=== PATIENT | male | born 1975 | race Two or more races ===

== ENCOUNTER 2019-04-11 09:31 | Inpatient (IN) | payer BC, OTHER ==
[~2019-04-11] VITALS: Ht 165.1 cm; Wt 78.0 kg
[~2019-04-11 09:31] MED LIST: RANITIDINE HCL150 MG ORAL
[2019-04-11] MEDS ORDERED: COLACE100 MG ORAL (09:46)
[2019-04-11] MEDS ORDERED: OMEPRAZOLE40 M1 ORAL (09:46)
--- NOTE | 2019-04-11 09:48 | NUR ---
ED Nurse Note: Pt walked in from home c/o abdominal pain. Pt is a&ox4. States he has had n&v since yesterday. Med rec done.
[2019-04-11 09:52] VITALS: BP 122/80
[2019-04-11] MEDS ORDERED: Ondansetron ODT 8mg tab ORAL ONE (10:00)
--- NOTE | 2019-04-11 10:01 | NUR ---
ED Nurse Note: ERMD at bedside.
[2019-04-11 10:19] LABS: APPEARANCE,URINE CLEAR; BILIRUBIN, URINE NEGATIVE (NEGATIVE); COLOR,URINE BROWN; GLUCOSE, URINE (UA) NEGATIVE (NEGATIVE); KETONES,URINE 1+ (NEGATIVE); LEUKOCYTE ESTERASE ,URINE 1+ (NEGATIVE); NITRITE,URINE NEGATIVE (NEGATIVE); PH,URINE 8 (4.5-8.0); PROTEIN,URINE 2+ (NEGATIVE); UROBILINOGEN,URINE NORMAL MG/DL (0.0-1.0)
--- NOTE | 2019-04-11 10:19 | NUR ---
ED Nurse Note: [facility] sap data analyst used to obtained director clinical information services name: Syd Chain Repairer ID # [id number]
--- NOTE | 2019-04-11 10:21 | NUR ---
Blood labs were sent to lab.
--- NOTE | 2019-04-11 10:22 | NUR ---
ED Nurse Note: ERMD at bedside with emergency medical technician/driver on phone.
[2019-04-11 10:35] LABS: BASOPHILS % (AUTO) 0.6 % (0.0-2.0); EOSINOPHILS % (AUTO) 0.1 % (0.0-3.0); HEMATOCRIT 49.4 % (42.0-52.0); HEMOGLOBIN 17.3 G/DL (14.2-18.0); MEAN CORPUSCULAR VOLUME 85 FL (80-99); MONOCYTES % (AUTO) 7.3 % (1.0-10.0); PLATELET COUNT 257 K/UL (150-450); RED CELL DISTRIBUTION WIDTH 10.7 % (11.6-14.8); WHITE BLOOD COUNT 12.8 K/UL (4.8-10.8)
[2019-04-11] MEDS ORDERED: Omnipaque-300 100ml vial INJ PRN (10:45)
[2019-04-11] MEDS ORDERED: Lidocaine 2% Visc 15ml soln ORAL ONE (10:45)
[2019-04-11 11:28] LABS: ANION GAP 4 mmol/L (5-15); BLOOD UREA NITROGEN 20 mg/dL (7-18); CALCIUM 9.9 MG/DL (8.5-10.1); CARBON DIOXIDE 35 MMOL/L (21-32); CHLORIDE 95 MMOL/L (98-107); CREATININE 1.1 MG/DL (0.55-1.30); POTASSIUM 3.3 MMOL/L (3.5-5.1); SODIUM 133 MMOL/L (136-145)
[2019-04-11 11:33] LABS: ALANINE AMINOTRANSFERASE 42 U/L (12-78); ALBUMIN 4.9 G/DL (3.4-5.0); ALBUMIN/GLOBULIN RATIO 1.2 (1.0-2.7); ALKALINE PHOSPHATASE 81 U/L (46-116); ASPARTATE AMINO TRANSFERASE 26 U/L (15-37); BILIRUBIN,TOTAL 0.6 MG/DL (0.2-1.0)
--- NOTE | 2019-04-11 11:40 | NUR ---
ED Nurse Note: pt taken to CT in stable condition.
--- NOTE | 2019-04-11 11:54 | NUR ---
Pt returned from CT.
--- NOTE | 2019-04-11 12:30 | Emergency Room Report ---
History of Present Illness General Chief Complaint: Abdominal Pain Source: Patient Present Illness HPI This patient states that he has a history of acid reflux and constipation. He is in treatment with his primary care physician for the constipation. He is on a fiber supplement and stool softener. He states that he has been having normal bowel movements. He states that yesterday he developed some abdominal pain and that overnight his pain began to worsen and was diffusely all over his abdomen. He also had multiple episodes of nausea and vomiting. He states that he also had a sensation of acid reflux. He denies dysuria or hematuria. He denies fever chills. He denies chest pain or shortness of breath. He has no other complaints. Allergies: Coded Allergies: No Known Allergies (Unverified , 08/27/15) Patient History Past Medical History: see triage record, GERD, other - Constipation Past Surgical History: other - colonoscopy within the last year. Social History: Denies: smoking, alcohol use, drug use Reviewed Nursing Documentation: PMH: Agreed; PSxH: Agreed Nursing Documentation-PMH Past Medical History: No History, Except For Hx Cardiac Problems: No - GERD Review of Systems All Other Systems: negative except mentioned in HPI Physical Exam Vital Signs Date Time Temp Pulse Resp B/P (MAP) Pulse Ox O2 Delivery O2 Flow Rate FiO2 04/11/19 09:38 98.2 85 17 127/84 (98) 95 Room Air 04/11/19 09:52 97 Sp02 EP Interpretation: reviewed, normal General Appearance: no apparent distress, alert, GCS 15, non-toxic Head: normocephalic, atraumatic Eyes: bilateral eye normal inspection, bilateral eye PERRL ENT: hearing grossly normal, normal pharynx, no angioedema, normal voice Neck: full range of motion, supple/symm/no masses Respiratory: chest non-tender, lungs clear, normal breath sounds, no respiratory distress, no retraction, no accessory muscle use, speaking full sentences Cardiovascular #1: regular rate, rhythm, no edema Gastrointestinal: normal bowel sounds, soft, non-distended, no guarding, no rebound, tenderness - TTP diffusely Rectal: deferred Musculoskeletal: back normal, gait/station normal, normal range of motion, non- tender Neurologic: alert, oriented x3, responsive, motor strength/tone normal, sensory intact, speech normal Psychiatric: judgement/insight normal, memory normal, mood/affect normal, no suicidal/homicidal ideation Skin: no rash, normal color Medical Decision Making Diagnostic Impression: Primary Impression: Partial small bowel obstruction ER Course This patient has findings on CT of the abdomen and pelvis that is concerning for a possible stricture in the distal small bowel. There are areas of dilated bowel. In the differential is an enteritis with a strong contraction that had been captured on the CT. However, the patient continues to have significant pain and tenderness on exam. The treatments that I gave for gastritis were only minimally effective in relieving the patient's symptoms and pain. I consulted general surgery Dr. Toledo and he agreed that this patient needed further evaluation. He needed to be admitted to assess for possible small bowel stricture. He is pending a small bowel follow-through and further evaluation and treatment per general surgery and internal medicine and their expertise. He is admitted for further evaluation and treatment and intractable pain. I am concerned that if this patient were to be discharged home he could progress and become fully obstructed with a significant possibility of morbidity or mortality. Laboratory Tests Test 04/11/19 10:00 04/11/19 10:18 Urine Color Brown Urine Appearance Clear Urine pH 8 (4.5-8.0) Urine Specific [place] 1.010 (1.005-1.035) Urine Protein 2+ (NEGATIVE) H Urine Glucose (UA) Negative (NEGATIVE) Urine Ketones 1+ (NEGATIVE) H Urine Blood Negative (NEGATIVE) Urine Nitrite Negative (NEGATIVE) Urine Bilirubin Negative (NEGATIVE) Urine Urobilinogen Normal MG/DL (0.0-1.0) Urine Leukocyte Esterase 1+ (NEGATIVE) H Urine RBC 0-2 /HPF (0 - 0) H Urine WBC 0-2 /HPF (0 - 0) Urine Squamous Epithelial Cells Occasional /LPF Urine Bacteria Few /HPF (NONE) Urine Mucus Few /LPF (NONE/OCC) H Urine Opiates Screen Negative (NEGATIVE) Urine Barbiturates Screen Negative (NEGATIVE) Phencyclidine (PCP) Screen Negative (NEGATIVE) Urine Amphetamines Screen Negative (NEGATIVE) Urine Benzodiazepines Screen Negative (NEGATIVE) Urine Cocaine Screen Negative (NEGATIVE) Urine Marijuana (THC) Screen Negative (NEGATIVE) White Blood Count 12.8 K/UL (4.8-10.8) H Red Blood Count 5.80 M/UL (4.70-6.10) Hemoglobin 17.3 G/DL (14.2-18.0) Hematocrit 49.4 % (42.0-52.0) Mean Corpuscular Volume 85 FL (80-99) Mean Corpuscular Hemoglobin 29.8 PG (27.0-31.0) Mean Corpuscular Hemoglobin Concent 35.0 G/DL (32.0-36.0) Red Cell Distribution Width 10.7 % (11.6-14.8) L Platelet Count 257 K/UL (150-450) Mean Platelet Volume 6.9 FL (6.5-10.1) Neutrophils (%) (Auto) 79.0 % (45.0-75.0) H Lymphocytes (%) (Auto) 13.0 % (20.0-45.0) L Monocytes (%) (Auto) 7.3 % (1.0-10.0) Eosinophils (%) (Auto) 0.1 % (0.0-3.0) Basophils (%) (Auto) 0.6 % (0.0-2.0) Sodium Level 133 MMOL/L (136-145) L Potassium Level 3.3 MMOL/L (3.5-5.1) L Chloride Level 95 MMOL/L (98-107) L Carbon Dioxide Level 35 MMOL/L (21-32) H Anion Gap 4 mmol/L (5-15) L Blood Urea Nitrogen 20 mg/dL (7-18) H Creatinine 1.1 MG/DL (0.55-1.30) Estimate Glomerular Filtration Rate > 60 mL/min (>60) Glucose Level 138 MG/DL (74-106) H Calcium Level 9.9 MG/DL (8.5-10.1) Total Bilirubin 0.6 MG/DL (0.2-1.0) Aspartate Amino Transferase (AST) 26 U/L (15-37) Alanine Aminotransferase (ALT) 42 U/L (12-78) Alkaline Phosphatase 81 U/L (46-116) Total Protein 8.9 G/DL (6.4-8.2) H Albumin 4.9 G/DL (3.4-5.0) Globulin 4.0 g/dL Albumin/Globulin Ratio 1.2 (1.0-2.7) Lipase 239 U/L (73-393) Serum Alcohol < 3 mg/dL CT/MRI/US Diagnostic Results CT/MRI/US Diagnostic Results : Imaging Test Ordered: CT abd/pelvis Impression Impression: Suspected gastroenteritis with diffuse fluid-filled distention of small bowel. There is a questionable transition a few centimeters from the ileocecal valve. This could be a small stricture or could be on the basis of a contraction. Would favor enteritis from a imaging standpoint. Correlate clinically. Last Vital Signs Date Time Temp Pulse Resp B/P (MAP) Pulse Ox O2 Delivery O2 Flow Rate FiO2 04/11/19 09:52 98.2 82 17 122/80 97 Room Air 04/11/19 09:52 97 Status: improved Disposition: ADMITTED INPATIENT Condition: Serious Referrals: NOT CHOSEN IPA/,REFERRING (PCP) Mary Nazario DO Apr 11, 2019 12:30
[2019-04-11 13:30] VITALS: BP 121/80
--- NOTE | 2019-04-11 13:58 | Diagnostic Imaging Report ---
Indication: Abdominal pain Technique: Continuous helical transaxial imaging of the abdomen and pelvis was obtained from the lung bases to the pubic symphysis during intravenous contrast administration. Coronal 2-D reformats were also obtained. Study obtained in a Siemens sensation [address] Automatic Exposure Control was utilized. Total Dose length Product (DLP): 896.[address] Dose Index Volume (CTDIvol): 15 mGy Comparison: None Findings: There is mild to moderate dilatation of small bowel throughout the abdomen. There may be a transition at the level of the terminal ileum approximately 5 cm from the ileocecal valve (for example image 66/series 2). This is questionable and the findings could be due to a bowel obstruction at this level or possibly generalized ileus. Correlate clinically. There is a generalized the increase in fluid within small bowel and there is also liquefied stool in the colon which is suggestive of a gastroenteritis. There is no free fluid. The liver, gallbladder and spleen, adrenal glands and kidneys appear normal. Pancreas is unremarkable. No biliary ductal dilatation seen. There is a minimal basilar atelectasis. IMPRESSION: Suspected gastroenteritis with diffuse fluid-filled distention of small bowel. There is a questionable transition a few centimeters from the ileocecal valve. This could be a small stricture or could be on the basis of a contraction. Would favor enteritis from a imaging standpoint. Correlate clinically. The CT scanner at [facility] is accredited by the [employer] and the scans are performed using dose optimization techniques as appropriate to a performed exam including Automatic Exposure control.
--- NOTE | 2019-04-11 14:23 | NUR ---
ED Nurse Note: ERPA at bedside explaining pt for admitting plans.
[2019-04-11] MEDS ORDERED: Morphine Sulfate 2mg/ml Inj(IV/IM USE ONLY) IVP PRN (14:45)
[2019-04-11] MEDS ORDERED: LORazepam Inj 2mg/ml 1ml IV PRN (14:45)
[2019-04-11] MEDS ORDERED: Metoclopramide 10mg/2ml Inj IVP PRN (14:45)
[2019-04-11] MEDS ORDERED: Mylanta II UD 30ml ORAL PRN (14:45)
[2019-04-11] MEDS ORDERED: Acetaminophen 650 MG SUPP RECTAL PRN (14:45)
--- NOTE | 2019-04-11 15:10 | NUR ---
Pt went to CT.
[2019-04-11] MEDS ORDERED: Nitroglycerin Subl 0.4mg tab SL PRN (15:15)
--- NOTE | 2019-04-11 16:03 | Consultation ---
History of Present Illness General Date patient seen: Apr 11, 2019 Reason for Hospitalization: Abdominal Pain Present Illness HPI This is a very pleasant 43-year-old male with history of chronic constipation on regular stool softeners who presents to the emergency department at [facility] complaining of worsening abdominal pain with associated nausea and emesis. States that for the past 2 days pain is been worsening epigastric upper abdominal as well as generalized abdominal discomfort. 6 out of 10 at max. Associated nausea and multiple bouts of nonbloody emesis. States he been passing flatus and had a bowel movement which was regular but pain and abdominal discomfort have been worsening. States history of GERD in the past under control as well as history of chronic constipation requiring daily stool softeners to assist with bowel movements. States he has been straining recently more often and feels very uncomfortable. In the ED CT scan performed identifying a possible bowel obstruction with dilated small bowel stomach with contents and area around the terminal ileum with thickening. Surgery was called to evaluate and assist with care. Patient seen, patient evaluated, chart reviewed. States he feels a little bit better now but is still having discomfort. On examination fairly tender in the right lower quadrant epigastric region. Images reviewed personally and the proximal duodenum and stomach are distended gas and fluid-filled. There is an area around the terminal ileum just prior to the ileocecal valve that is thickened and almost a case stricture. History of prior colonoscopy and normal. Follows with his doctor. No blood noted in stool or emesis. Allergies: Coded Allergies: No Known Allergies (Unverified , 08/27/15) Medication History Scheduled Docusate Sodium* (Colace*), 100 MG ORAL TWICE A DAY, (Reported) Omeprazole (Omeprazole), 40 MG ORAL DAILY, (Reported) Ranitidine Hcl* (Zantac*), 150 MG ORAL TWICE A DAY Patient History History Provided By: Patient Healthcare decision maker Resuscitation status Advanced Directive on File Past Medical/Surgical History Past Medical/Surgical History: (1) Constipation (2) Partial small bowel obstruction (3) Gastritis Review of Systems Review of Symptoms General ROS: no weight loss or fever Psychological ROS: no depression or mood changes, no memory loss Ophthalmic ROS: no visual changes or eye irritation ENT ROS: no nasal congestion, hearing loss, dizziness Allergy and Immunology ROS: no allergic symptoms or urticaria Hematological and Lymphatic ROS: no swollen glands, unusual bleeding or bruising Endocrine ROS: no polyuria, polydipsia, weight changes, temperature intolerance Respiratory ROS: no cough, shortness of breath, or wheezing Cardiovascular ROS: no chest pain or dyspnea on exertion Gastrointestinal ROS: abdominal pain, bright red blood in stool. Musculoskeletal ROS: no myalgias or arthralgias Neurological ROS: no TIA or stroke symptoms Dermatological ROS: no new or changing skin lesions, rashes or pruritis Physical Exam Physical Exam General appearance: alert, cooperative, no distress, appears stated age Head: Normocephalic, without obvious abnormality, atraumatic Eyes: conjunctivae/corneas clear. PERRL, EOM's intact. Fundi benign Throat: Lips, mucosa, and tongue normal. Teeth and gums normal Neck: supple, symmetrical, trachea midline, no adenopathy, thyroid: not enlarged, symmetric, no tenderness/mass/nodules, no carotid bruit and no JVD Lungs: clear to auscultation bilaterally Heart: regular rate and rhythm, S1, S2 normal, no murmur, click, rub or gallop Abdomen: soft, epigastric and RLQ tender. Bowel sounds normal. No masses, no organomegaly Extremities: extremities normal, atraumatic, no cyanosis or edema Pulses: 2+ and symmetric Skin: Skin color, texture, turgor normal. No rashes or lesions Neurologic: Grossly normal Last 24 Hour Vital Signs Date Time Temp Pulse Resp B/P (MAP) Pulse Ox O2 Delivery O2 Flow Rate FiO2 04/11/19 13:30 98.2 60 19 121/80 98 Room Air 04/11/19 09:52 98.2 82 17 122/80 97 Room Air 04/11/19 09:52 82 17 Room Air 97 04/11/19 09:38 98.2 85 17 127/84 (98) 95 Room Air Laboratory Tests Test 04/11/19 10:00 04/11/19 10:18 Urine Color Brown Urine Appearance Clear Urine pH 8 (4.5-8.0) Urine Specific [place] 1.010 (1.005-1.035) Urine Protein 2+ (NEGATIVE) H Urine Glucose (UA) Negative (NEGATIVE) Urine Ketones 1+ (NEGATIVE) H Urine Blood Negative (NEGATIVE) Urine Nitrite Negative (NEGATIVE) Urine Bilirubin Negative (NEGATIVE) Urine Urobilinogen Normal MG/DL (0.0-1.0) Urine Leukocyte Esterase 1+ (NEGATIVE) H Urine RBC 0-2 /HPF (0 - 0) H Urine WBC 0-2 /HPF (0 - 0) Urine Squamous Epithelial Cells Occasional /LPF Urine Bacteria Few /HPF (NONE) Urine Mucus Few /LPF (NONE/OCC) H Urine Opiates Screen Negative (NEGATIVE) Urine Barbiturates Screen Negative (NEGATIVE) Phencyclidine (PCP) Screen Negative (NEGATIVE) Urine Amphetamines Screen Negative (NEGATIVE) Urine Benzodiazepines Screen Negative (NEGATIVE) Urine Cocaine Screen Negative (NEGATIVE) Urine Marijuana (THC) Screen Negative (NEGATIVE) White Blood Count 12.8 K/UL (4.8-10.8) H Red Blood Count 5.80 M/UL (4.70-6.10) Hemoglobin 17.3 G/DL (14.2-18.0) Hematocrit 49.4 % (42.0-52.0) Mean Corpuscular Volume 85 FL (80-99) Mean Corpuscular Hemoglobin 29.8 PG (27.0-31.0) Mean Corpuscular Hemoglobin Concent 35.0 G/DL (32.0-36.0) Red Cell Distribution Width 10.7 % (11.6-14.8) L Platelet Count 257 K/UL (150-450) Mean Platelet Volume 6.9 FL (6.5-10.1) Neutrophils (%) (Auto) 79.0 % (45.0-75.0) H Lymphocytes (%) (Auto) 13.0 % (20.0-45.0) L Monocytes (%) (Auto) 7.3 % (1.0-10.0) Eosinophils (%) (Auto) 0.1 % (0.0-3.0) Basophils (%) (Auto) 0.6 % (0.0-2.0) Sodium Level 133 MMOL/L (136-145) L Potassium Level 3.3 MMOL/L (3.5-5.1) L Chloride Level 95 MMOL/L (98-107) L Carbon Dioxide Level 35 MMOL/L (21-32) H Anion Gap 4 mmol/L (5-15) L Blood Urea Nitrogen 20 mg/dL (7-18) H Creatinine 1.1 MG/DL (0.55-1.30) Estimat Glomerular Filtration Rate > 60 mL/min (>60) Glucose Level 138 MG/DL (74-106) H Calcium Level 9.9 MG/DL (8.5-10.1) Total Bilirubin 0.6 MG/DL (0.2-1.0) Aspartate Amino Transf (AST/SGOT) 26 U/L (15-37) Alanine Aminotransferase (ALT/SGPT) 42 U/L (12-78) Alkaline Phosphatase 81 U/L (46-116) Total Protein 8.9 G/DL (6.4-8.2) H Albumin 4.9 G/DL (3.4-5.0) Globulin 4.0 g/dL Albumin/Globulin Ratio 1.2 (1.0-2.7) Lipase 239 U/L (73-393) Serum Alcohol < 3 mg/dL Height (Feet): 5 Height (Inches): 5.00 Weight (Pounds): 175 Medications Current Medications Medications (Trade) Dose Ordered Sig/Taty Route PRN Reason Start Time Stop Time Status Last Admin Dose Admin Acetaminophen (Tylenol) 650 mg Q4H PRN RECTAL t>100.5 04/11/19 14:45 05/11/19 14:44 Al Hydroxide/Mg Hydroxide (Mylanta II) 30 ml Q6H PRN ORAL dyspepsia 04/11/19 14:45 05/11/19 14:44 Bisacodyl (Dulcolax) 10 mg HSPRN PRN RECTAL Constipation 04/11/19 21:00 05/11/19 20:59 Dextrose (Dextrose 50%) 25 ml Q30M PRN IV Hypoglycemia 04/11/19 14:45 05/11/19 14:44 Dextrose (Dextrose 50%) 50 ml Q30M PRN IV Hypoglycemia 04/11/19 14:45 05/11/19 14:44 Dextrose/ Electrolytes 1,000 ml @ 100 mls/hr Q10H IV 04/11/19 15:39 05/11/19 15:38 Diphenhydramine HCl (Benadryl) 25 mg Q6H PRN ORAL Itching/Pruritis 04/11/19 14:45 05/11/19 14:44 Famotidine (Pepcid I.v.) 20 mg Q12HR IVP 04/11/19 21:00 05/11/19 20:59 Iohexol (OMNIPAQUE-300 100ml) 100 ml NOW PRN INJ Radiology Procedure 04/11/19 10:45 04/13/19 10:32 Lorazepam (Ativan 2mg/ml 1ml) 0.5 mg Q4H PRN IV For Anxiety 04/11/19 14:45 04/18/19 14:44 Magnesium Hydroxide (Mom) 30 ml HSPRN PRN ORAL Constipation 04/11/19 21:00 05/11/19 20:59 Metoclopramide HCl (Reglan) 10 mg Q6H PRN IVP Nausea & Vomiting 04/11/19 14:45 05/11/19 14:44 Morphine Sulfate (Morphine Sulfate) 1 mg Q3H PRN IVP PAIN 4-10 04/11/19 14:45 04/18/19 14:44 Nitroglycerin (Ntg) 0.4 mg Q5MIN X 3 DOSES PRN SL Prn Chest Pain 04/11/19 15:15 05/11/19 15:14 Temazepam (Restoril) 15 mg HSPRN PRN ORAL Insomnia 04/11/19 21:00 04/18/19 20:59 Assessment/Plan Problem List: (1) Partial small bowel obstruction Assessment & Plan: 43-year-old male with abdominal pain, nausea, emesis. History of GERD and chronic constipation. Pain ongoing for 2 days. Normal bowel movements and flatus. On examination right lower quadrant epigastric region actually fairly tender with voluntary guarding. CT noted and fairly concerning given significant bowel dilatation air-fluid levels distended stomach duodenum and area of thickening with decompression around the terminal ileum Recommend stat upper GI contrast study to evaluate transit as well as potential for complete obstruction given the findings noted on the CT. The area around the terminal ileum could be a stricture inflammatory infectious or even potential tumor. Need to identify if completely obstructed and if so will need surgical intervention. If not completely obstructed in that area just slow transit or partial obstruction then when stabilized will consider scope. Admit to medical service N.p.o. IV fluids IV antibiotics in case potential infectious process Stool studies Trend labs Serial abdominal examinations We will follow-up GI study Thank you for allowing participate patient's care will will follow with recommendations ICD Codes: K56.600 - Partial intestinal obstruction, unspecified as to cause SNOMED: [id number] Vinod Toledo Apr 11, 2019 16:03
--- NOTE | 2019-04-11 16:30 | NUR ---
ED Nurse Note: pt still in CT.
--- NOTE | 2019-04-11 16:32 | NUR ---
ED Nurse Note: pt in imaging center for Small bowel study which takes a couple of hours.
--- NOTE | 2019-04-11 17:04 | NUR ---
ED Nurse Note: Received room number. pt still in small bowel study.
--- NOTE | 2019-04-11 17:39 | NUR ---
ED Nurse Note: Pt came back from small bowel study in stable condition.
--- NOTE | 2019-04-11 17:46 | NUR ---
ED Nurse Note: report given to GABRIELA Harris
--- NOTE | 2019-04-11 18:20 | NUR ---
ED Nurse Note: pt left unit with 1 pilot plant technician in stable condition.
[2019-04-11 18:45] VITALS: BP 124/77
--- NOTE | 2019-04-11 19:56 | NUR ---
NURSE NOTES: Received report from GABRIELA Harris. Patient a/a/o x 4, speaking [place] only. Breathing unlabored on room air without distress. No complaints of pain noted at this time. IV noted on right arm intact and patent running fluid as ordered. Patient ambulatory with steady gait. Admission orders placed by Dr. Toledo. DVT order received from Dr. Brush as SCDs. Patient home medications reviewed. No skin issues. Oriented to the room and the unit. Bed placed at the lowest with brake and siderails up for safety. Call light placed within reach. Will continue to monitor and provide care as ordered.
[2019-04-11 20:00] VITALS: BP 123/73
--- NOTE | 2019-04-11 20:59 | NUR ---
NURSE NOTES: Belongings confirmed with patient.
[2019-04-11] MEDS ORDERED: Milk of Magnesia 30ml Ud ORAL PRN (21:00)
[2019-04-12] VITALS: BP 120/71
[2019-04-12 04:00] VITALS: BP 124/76
--- NOTE | 2019-04-12 07:34 | NUR ---
NURSE NOTES: Received report from GABRIELA Barnard. Patient sleeping. On room air. No SOB. IV intact, patent, infusing fluids. Bed in lowest position with call light in reach. Will continue with plan of care.
--- NOTE | 2019-04-12 07:35 | NUR ---
HAND-OFF: Report given to GABRIELA Barcenas.
[2019-04-12 08:00] VITALS: BP 109/75
[2019-04-12 08:06] LABS: BASOPHILS % (AUTO) 0.5 % (0.0-2.0); EOSINOPHILS % (AUTO) 2.7 % (0.0-3.0); HEMATOCRIT 41.4 % (42.0-52.0); HEMOGLOBIN 14.2 G/DL (14.2-18.0); LYMPHOCYTES % (AUTO) 38.1 % (20.0-45.0); MEAN CORPUSCULAR VOLUME 87 FL (80-99); NEUTROPHILS % (AUTO) 46.7 % (45.0-75.0); PLATELET COUNT 188 K/UL (150-450); RED BLOOD COUNT 4.74 M/UL (4.70-6.10); RED CELL DISTRIBUTION WIDTH 11.3 % (11.6-14.8); WHITE BLOOD COUNT 4.6 K/UL (4.8-10.8)
[2019-04-12 08:52] LABS: ALANINE AMINOTRANSFERASE 38 U/L (12-78); ALBUMIN 3.5 G/DL (3.4-5.0); ALKALINE PHOSPHATASE 63 U/L (46-116); ANION GAP 8 mmol/L (5-15); ASPARTATE AMINO TRANSFERASE 18 U/L (15-37); BILIRUBIN,TOTAL 0.7 MG/DL (0.2-1.0); BLOOD UREA NITROGEN 19 mg/dL (7-18); CALCIUM 7.7 MG/DL (8.5-10.1); CARBON DIOXIDE 28 MMOL/L (21-32); CHLORIDE 111 MMOL/L (98-107); CHOLESTEROL 167 MG/DL (< 200); HDL CHOLESTEROL 37 MG/DL (40-60); POTASSIUM 3.7 MMOL/L (3.5-5.1); SODIUM 147 MMOL/L (136-145); TRIGLYCERIDES 107 MG/DL (30-150)
[2019-04-12] MEDS ORDERED: D5 1/2NS w/KCl 20mEq 1,000 ML IV SCH (10:00)
--- NOTE | 2019-04-12 10:36 | Diagnostic Imaging Report ---
EXAM: XR Abdomen, 2 Views CLINICAL HISTORY: F U TECHNIQUE: Frontal view of the abdomen pelvis with upright view of the abdomen. COMPARISON: Small bowel follow-through on 04 11 2019 FINDINGS: Hardware: None. Abdomen: Nonobstructive bowel gas pattern. No free air. Oral contrast noted seen in the left colon. Bones: Normal. Soft tissues: Normal. Lower chest: Normal. IMPRESSION: Nonobstructive bowel gas pattern with oral contrast noted seen in the left colon.
[2019-04-12] MEDS: D5 1/2NS w/KCl 20mEq 1,000 ML IV SCH ×2 (10:48→21:48)
[2019-04-12 12:00] VITALS: BP 112/70
--- NOTE | 2019-04-12 14:58 | Surgery Progress Note ---
Surgery Progress Note Subjective Symptoms: improved, voiding well, passing flatus, BM, pain decreased Additional Comments States he feels better today and pain is significant improved. No nausea vomiting fever chills. Passing gas and flatus. Upper GI contrast identified with contrast into the colon no signs of obstruction is process. Objective Last 24 Hour Vital Signs Date Time Temp Pulse Resp B/P (MAP) Pulse Ox O2 Delivery O2 Flow Rate FiO2 04/12/19 04:00 98.0 72 19 124/76 (92) 97 04/12/19 00:00 98.0 76 19 120/71 (87) 98 04/11/19 21:00 Room Air 04/11/19 20:21 Room Air 04/11/19 20:00 98.1 72 19 123/73 (90) 96 04/11/19 18:45 97.9 70 18 124/77 (93) 96 04/11/19 18:22 97.7 68 19 118/67 98 Room Air I&O Intake and Output 04/11/19 04/12/19 19:00 07:00 Intake Total 2000 ml 1100 ml Balance 2000 ml 1100 ml Intake Oral 0 ml 0 ml IV Total 2000 ml 1100 ml # Voids 2 Cardiovascular: RSR Respiratory: clear Abdomen: soft, flat, non-tender, present bowel sounds, non-distended Extremities: no edema, no tenderness, no cyanosis Laboratory Tests Test 04/12/19 06:10 White Blood Count 4.6 K/UL (4.8-10.8) #L Red Blood Count 4.74 M/UL (4.70-6.10) Hemoglobin 14.2 G/DL (14.2-18.0) Hematocrit 41.4 % (42.0-52.0) L Mean Corpuscular Volume 87 FL (80-99) Mean Corpuscular Hemoglobin 30.0 PG (27.0-31.0) Mean Corpuscular Hemoglobin Concent 34.4 G/DL (32.0-36.0) Red Cell Distribution Width 11.3 % (11.6-14.8) L Platelet Count 188 K/UL (150-450) Mean Platelet Volume 6.8 FL (6.5-10.1) Neutrophils (%) (Auto) 46.7 % (45.0-75.0) Lymphocytes (%) (Auto) 38.1 % (20.0-45.0) Monocytes (%) (Auto) 12.0 % (1.0-10.0) H Eosinophils (%) (Auto) 2.7 % (0.0-3.0) Basophils (%) (Auto) 0.5 % (0.0-2.0) Erythrocyte Sedimentation Rate 21 MM/HR (0-15) H Prothrombin Time 10.5 SEC (9.30-11.50) Prothromb Time International Ratio 1.0 (0.9-1.1) Activated Partial Thromboplast Time 26 SEC (23-33) Sodium Level 147 MMOL/L (136-145) #H Potassium Level 3.7 MMOL/L (3.5-5.1) Chloride Level 111 MMOL/L (98-107) H Carbon Dioxide Level 28 MMOL/L (21-32) Anion Gap 8 mmol/L (5-15) Blood Urea Nitrogen 19 mg/dL (7-18) H Creatinine 1.0 MG/DL (0.55-1.30) Estimat Glomerular Filtration Rate > 60 mL/min (>60) Glucose Level 108 MG/DL (74-106) H Hemoglobin A1c 5.1 % (4.3-6.0) Calcium Level 7.7 MG/DL (8.5-10.1) #L Total Bilirubin 0.7 MG/DL (0.2-1.0) Aspartate Amino Transf (AST/SGOT) 18 U/L (15-37) Alanine Aminotransferase (ALT/SGPT) 38 U/L (12-78) Alkaline Phosphatase 63 U/L (46-116) C-Reactive Protein, Quantitative 3.7 mg/dL (0.00-0.90) H Pro-B-Type Natriuretic Peptide 11 pg/mL (0-125) Total Protein 6.9 G/DL (6.4-8.2) Albumin 3.5 G/DL (3.4-5.0) Globulin 3.4 g/dL Albumin/Globulin Ratio 1.0 (1.0-2.7) Triglycerides Level 107 MG/DL (30-150) Cholesterol Level 167 MG/DL (< 200) LDL Cholesterol 113 mg/dL (<100) H HDL Cholesterol 37 MG/DL (40-60) L Cholesterol/HDL Ratio 4.5 (3.3-4.4) H Amylase Level 65 U/L (25-115) Plan Problems: (1) Partial small bowel obstruction Assessment & Plan: 43-year-old male with abdominal pain, nausea, emesis. History of GERD and chronic constipation. Pain ongoing for 2 days. Normal bowel movements and flatus. On examination right lower quadrant epigastric region actually fairly tender with voluntary guarding. CT noted and fairly concerning given significant bowel dilatation air-fluid levels distended stomach duodenum and area of thickening with decompression around the terminal ileum Recommend stat upper GI contrast study to evaluate transit as well as potential for complete obstruction given the findings noted on the CT. The area around the terminal ileum could be a stricture inflammatory infectious or even potential tumor. Need to identify if completely obstructed and if so will need surgical intervention. If not completely obstructed in that area just slow transit or partial obstruction then when stabilized will consider scope. Upper GI contrast identified with good passage of contrast without significant obstructive process or delay and contrast noted in the colon followed by bowel movements. Start trial clear liquid diet IV fluids IV antibiotics in case potential infectious process Stool studies Trend labs Serial abdominal examinations We will continue to monitor Thank you for allowing participate patient's care will will follow with recommendations Vinod Toledo Apr 12, 2019 14:58
[2019-04-12 16:00] VITALS: BP 108/74
[2019-04-12 16:25] LABS: BASOPHILS % (AUTO) 1.2 % (0.0-2.0); EOSINOPHILS % (AUTO) 2.3 % (0.0-3.0); HEMATOCRIT 42.2 % (42.0-52.0); HEMOGLOBIN 14.8 G/DL (14.2-18.0); LYMPHOCYTES % (AUTO) 37.9 % (20.0-45.0); MEAN CORPUSCULAR VOLUME 85 FL (80-99); MONOCYTES % (AUTO) 10.6 % (1.0-10.0); NEUTROPHILS % (AUTO) 48.1 % (45.0-75.0); PLATELET COUNT 187 K/UL (150-450); RED BLOOD COUNT 4.98 M/UL (4.70-6.10); RED CELL DISTRIBUTION WIDTH 9.9 % (11.6-14.8); WHITE BLOOD COUNT 4.1 K/UL (4.8-10.8)
--- NOTE | 2019-04-12 16:51 | NUR ---
CASE MANAGEMENT: REVIEW 43Y/MALE PRESENTED TO ED CC: ABD PAIN . NAUSEA . CHRONIC CONSTIPATION SI: PARTIAL BOWEL OBSTRUCTION T 98.2 HR 85 RR 17 BP 127/84 SAT 95% ROOM AIR WBC 12.8 NA 133 K 3.3 IS: NA IVF BOLUS X1 MYLANTA 30ML X1 PEPCID IV X1 ZOFRAN PO X1 NPO PATIENT ADMITTED TO MED/SURG UNIT 04/11/2019 DCP: PATIENT IS FROM HOME
--- NOTE | 2019-04-12 17:15 | History and Physical Report ---
DATE OF ADMISSION: 04/11/2019 CHIEF COMPLAINT: Abdominal pain, nausea, and vomiting. HISTORY OF PRESENT ILLNESS: The patient is a 43-year-old male. He has a history of GERD and constipation. He presented with complaints of one to two days of progressive nausea, vomiting, and abdominal pain, with a few episodes of diarrhea. He denies any fevers or chills. No melena. No hematemesis. No bright red blood per rectum. On evaluation in the emergency room, the patient had a CAT scan. There was concern about a possible small bowel obstruction. Surgical consultation was obtained. The patient is now admitted for further evaluation and care. He has had several more episodes of watery diarrhea. He denies any fevers or chills. No ill contacts. No recent travel. PAST MEDICAL HISTORY: As above. PAST SURGICAL HISTORY: None. CURRENT MEDICATIONS: Reconciled and reviewed. ALLERGIES: None. FAMILY HISTORY: None. SOCIAL HISTORY: The patient drinks socially. No smoking or drugs. REVIEW OF SYSTEMS: GENERAL: No fevers or chills. HEENT: No headaches or visual changes. CARDIOPULMONARY: No chest pain or shortness of breath. GASTROINTESTINAL: Positive nausea, vomiting, and diarrhea. GENITOURINARY: No urgency or frequency. MUSCULOSKELETAL: No joint pain or swelling. NEUROLOGICAL: No evidence of seizures. PHYSICAL EXAMINATION: VITAL SIGNS: Temperature 98 degrees, pulse 72, respirations 19, and blood pressure 124/76. GENERAL: The patient is well developed, in no apparent distress. HEART: Regular rate and rhythm. LUNGS: Clear. ABDOMEN: Soft, nontender, and nondistended with normoactive bowel sounds. EXTREMITIES: No clubbing, cyanosis, or edema. LABORATORY DATA: Sodium 133, potassium 3.3, chloride 95, bicarb 35, BUN 20, and creatinine 1.1. White count was 13, hemoglobin 17, hematocrit 49, and platelets 257,000. Coags are normal. UA was clear. Toxicology screen was negative. ASSESSMENT: This is a 43-year-old male admitted with complaints of abdominal pain, nausea, and vomiting, suspect secondary to gastroenteritis. We cannot rule out obstruction. PLAN: 1. Surgical followup. 2. IV hydration. 3. Pain medications. 4. Antiemetics as needed. 5. Repeat x-ray of the abdomen in the morning. Fernando Brush M.D. DR: TAYO JOB#: [id number] CC:
--- NOTE | 2019-04-12 19:30 | NUR ---
HAND-OFF: Report given to GABRIELA Toth.
[2019-04-12 20:00] VITALS: BP 116/77
--- NOTE | 2019-04-12 20:00 | NUR ---
NURSE NOTES: received pt in bed. AAO x4 room air. running D5 NS w/ KCl 20 mEq @ 100ml/hr. no acute distress. no c/o pain. call light within reach. bed is the lowest position. will continue to provide plan of care.
[2019-04-13] VITALS: BP 122/78
[2019-04-13 04:00] VITALS: BP 125/70
[2019-04-13] MEDS: D5 1/2NS w/KCl 20mEq 1,000 ML IV SCH (06:16)
[2019-04-13 06:38] LABS: BASOPHILS % (AUTO) 0.9 % (0.0-2.0); EOSINOPHILS % (AUTO) 3.3 % (0.0-3.0); HEMATOCRIT 41.6 % (42.0-52.0); HEMOGLOBIN 14.2 G/DL (14.2-18.0); LYMPHOCYTES % (AUTO) 40.8 % (20.0-45.0); MEAN CORPUSCULAR VOLUME 88 FL (80-99); MONOCYTES % (AUTO) 9.2 % (1.0-10.0); NEUTROPHILS % (AUTO) 45.8 % (45.0-75.0); PLATELET COUNT 188 K/UL (150-450); RED BLOOD COUNT 4.75 M/UL (4.70-6.10); RED CELL DISTRIBUTION WIDTH 11.1 % (11.6-14.8); WHITE BLOOD COUNT 4.6 K/UL (4.8-10.8)
[2019-04-13 07:22] LABS: ALANINE AMINOTRANSFERASE 37 U/L (12-78); ALBUMIN 3.3 G/DL (3.4-5.0); ALKALINE PHOSPHATASE 54 U/L (46-116); ANION GAP 1 mmol/L (5-15); ASPARTATE AMINO TRANSFERASE 21 U/L (15-37); BILIRUBIN,TOTAL 0.7 MG/DL (0.2-1.0); BLOOD UREA NITROGEN 13 mg/dL (7-18); CALCIUM 7.9 MG/DL (8.5-10.1); CARBON DIOXIDE 32 MMOL/L (21-32); CHLORIDE 104 MMOL/L (98-107); POTASSIUM 3.8 MMOL/L (3.5-5.1); SODIUM 137 MMOL/L (136-145)
--- NOTE | 2019-04-13 07:33 | NUR ---
HAND-OFF: Report given to Aster OCHOA.
[2019-04-13 08:00] VITALS: BP 121/59
--- NOTE | 2019-04-13 08:00 | NUR ---
NURSE NOTES: received patient in bed, asleep, no sign of distress noted. Patient receives D5 1/2 NS + 20 mEq KCl @ 100cc/hr through RFA access, no sign of infiltration noted. Bed is locked at the lowest position possible, call light within easy reach, siderails up x3. Will continue to monitor patient and follow up with the plan of care.
--- NOTE | 2019-04-13 08:04 | General Progress Note ---
Assessment/Plan Problem List: (1) Constipation ICD Codes: K59.00 - Constipation, unspecified SNOMED: 46283466 (2) Gastritis ICD Codes: K29.70 - Gastritis, unspecified, without bleeding SNOMED: 1044352 (3) Partial small bowel obstruction ICD Codes: K56.600 - Partial intestinal obstruction, unspecified as to cause SNOMED: 258596330 Status: stable, progressing Assessment/Plan: stable kub dc planning per surgery Subjective ROS Limited/Unobtainable: No Constitutional: Reports: malaise, weakness HEENT: Reports: no symptoms Cardiovascular: Reports: no symptoms Respiratory: Reports: no symptoms Gastrointestinal/Abdominal: Reports: nausea, vomiting Genitourinary: Reports: no symptoms Neurologic/Psychiatric: Reports: pre-existing deficit Endocrine: Reports: no symptoms Hematologic/Lymphatic: Reports: no symptoms Allergies: Coded Allergies: No Known Allergies (Unverified , 08/27/15) All Systems: reviewed and negative except above Subjective no events. no nausea or vomiting. no diarrhea. Objective Last 24 Hour Vital Signs Date Time Temp Pulse Resp B/P (MAP) Pulse Ox O2 Delivery O2 Flow Rate FiO2 04/13/19 04:00 97.0 68 18 125/70 (88) 98 04/13/19 00:00 97.2 62 19 122/78 (93) 04/12/19 21:00 Room Air 04/12/19 20:00 97.7 64 19 116/77 (90) 100 04/12/19 16:00 98.2 63 18 108/74 (85) 98 04/12/19 12:00 97.8 64 18 112/70 (84) 97 04/12/19 09:00 Room Air Intake and Output 04/12/19 04/13/19 19:00 07:00 Intake Total 100 ml 745 ml Balance 100 ml 745 ml Intake Oral 0 ml IV Total 100 ml 745 ml # Voids 1 2 # Bowel Movements 2 Laboratory Tests 04/12/19 15:55: White Blood Count 4.1L, Red Blood Count 4.98, Hemoglobin 14.8, Hematocrit 42.2, Mean Corpuscular Volume 85, Mean Corpuscular Hemoglobin 29.8, Mean Corpuscular Hemoglobin Concent 35.2, Red Cell Distribution Width 9.9L, Platelet Count 187, Mean Platelet Volume 6.5, Neutrophils (%) (Auto) 48.1, Lymphocytes (%) (Auto) 37.9, Monocytes (%) (Auto) 10.6H, Eosinophils (%) (Auto) 2.3, Basophils (%) ( Auto) 1.2 04/13/19 05:55: White Blood Count 4.6L, Red Blood Count 4.75, Hemoglobin 14.2, Hematocrit 41.6L , Mean Corpuscular Volume 88, Mean Corpuscular Hemoglobin 30.0, Mean Corpuscular Hemoglobin Concent 34.2, Red Cell Distribution Width 11.1L, Platelet Count 188, Mean Platelet Volume 6.6, Neutrophils (%) (Auto) 45.8, Lymphocytes (%) (Auto) 40.8, Monocytes (%) (Auto) 9.2, Eosinophils (%) (Auto) 3.3H, Basophils (%) (Auto) 0.9, Sodium Level 137#, Potassium Level 3.8, Chloride Level 104, Carbon Dioxide Level 32, Anion Gap 1L, Blood Urea Nitrogen 13, Creatinine 1.0, Estimat Glomerular Filtration Rate > 60, Glucose Level 100, Calcium Level 7.9L, Total Bilirubin 0.7, Aspartate Amino Transf (AST/SGOT) 21, Alanine Aminotransferase (ALT/SGPT) 37, Alkaline Phosphatase 54, Total Protein 6.6, Albumin 3.3L, Globulin 3.3, Albumin/Globulin Ratio 1.0 Height (Feet): 5 Height (Inches): 5.00 Weight (Pounds): 172 General Appearance: WD/WN Neck: supple Cardiovascular: regular rhythm Respiratory/Chest: lungs clear Abdomen: normal bowel sounds, non tender, soft, no organomegaly Edema: no edema noted Arm (L), no edema noted Arm (R), no edema noted Leg (L), no edema noted Leg (R), no edema noted Pedal (L), no edema noted Pedal (R), no edema noted Generalized Fernando Brush MD Apr 13, 2019 08:04
--- NOTE | 2019-04-13 10:23 | Diagnostic Imaging Report ---
EXAM: XR Abdomen, 2 Views CLINICAL HISTORY: F U TECHNIQUE: Frontal view of the abdomen pelvis with upright view of the abdomen. COMPARISON: Abdominal radiographs on 04 12 2019 FINDINGS: Hardware: None. Abdomen: Nonobstructive but nonspecific bowel gas pattern. Mildly prominent gas-filled loops of small bowel in the left abdomen. Trace residual oral contrast in the left colon. No free air. Bones: Normal. Soft tissues: Normal. Lower chest: Normal. IMPRESSION: Nonobstructive but nonspecific bowel gas pattern. Mildly prominent gas- filled loops of small bowel in the left abdomen.
--- NOTE | 2019-04-13 10:55 | Surgery Progress Note ---
Surgery Progress Note Subjective Symptoms: improved, pain absent, tolerating diet, passing flatus, BM Objective Last 24 Hour Vital Signs Date Time Temp Pulse Resp B/P (MAP) Pulse Ox O2 Delivery O2 Flow Rate FiO2 04/13/19 09:00 Room Air 04/13/19 08:00 97.7 59 17 121/59 (79) 99 04/13/19 04:00 97.0 68 18 125/70 (88) 98 04/13/19 00:00 97.2 62 19 122/78 (93) 04/12/19 21:00 Room Air 04/12/19 20:00 97.7 64 19 116/77 (90) 100 04/12/19 16:00 98.2 63 18 108/74 (85) 98 04/12/19 12:00 97.8 64 18 112/70 (84) 97 I&O Intake and Output 04/12/19 04/13/19 18:59 06:59 Intake Total 100 ml 745 ml Balance 100 ml 745 ml Intake Oral 0 ml IV Total 100 ml 745 ml # Voids 1 2 # Bowel Movements 2 Cardiovascular: RSR Respiratory: clear Abdomen: soft, flat, non-tender, present bowel sounds, non-distended Extremities: no edema, no tenderness, no cyanosis Laboratory Tests Test 04/12/19 15:55 04/13/19 05:55 White Blood Count 4.1 K/UL (4.8-10.8) L 4.6 K/UL (4.8-10.8) L Red Blood Count 4.98 M/UL (4.70-6.10) 4.75 M/UL (4.70-6.10) Hemoglobin 14.8 G/DL (14.2-18.0) 14.2 G/DL (14.2-18.0) Hematocrit 42.2 % (42.0-52.0) 41.6 % (42.0-52.0) L Mean Corpuscular Volume 85 FL (80-99) 88 FL (80-99) Mean Corpuscular Hemoglobin 29.8 PG (27.0-31.0) 30.0 PG (27.0-31.0) Mean Corpuscular Hemoglobin Concent 35.2 G/DL (32.0-36.0) 34.2 G/DL (32.0-36.0) Red Cell Distribution Width 9.9 % (11.6-14.8) L 11.1 % (11.6-14.8) L Platelet Count 187 K/UL (150-450) 188 K/UL (150-450) Mean Platelet Volume 6.5 FL (6.5-10.1) 6.6 FL (6.5-10.1) Neutrophils (%) (Auto) 48.1 % (45.0-75.0) 45.8 % (45.0-75.0) Lymphocytes (%) (Auto) 37.9 % (20.0-45.0) 40.8 % (20.0-45.0) Monocytes (%) (Auto) 10.6 % (1.0-10.0) H 9.2 % (1.0-10.0) Eosinophils (%) (Auto) 2.3 % (0.0-3.0) 3.3 % (0.0-3.0) H Basophils (%) (Auto) 1.2 % (0.0-2.0) 0.9 % (0.0-2.0) Sodium Level 137 MMOL/L (136-145) # Potassium Level 3.8 MMOL/L (3.5-5.1) Chloride Level 104 MMOL/L (98-107) Carbon Dioxide Level 32 MMOL/L (21-32) Anion Gap 1 mmol/L (5-15) L Blood Urea Nitrogen 13 mg/dL (7-18) Creatinine 1.0 MG/DL (0.55-1.30) Estimat Glomerular Filtration Rate > 60 mL/min (>60) Glucose Level 100 MG/DL (74-106) Calcium Level 7.9 MG/DL (8.5-10.1) L Total Bilirubin 0.7 MG/DL (0.2-1.0) Aspartate Amino Transf (AST/SGOT) 21 U/L (15-37) Alanine Aminotransferase (ALT/SGPT) 37 U/L (12-78) Alkaline Phosphatase 54 U/L (46-116) Total Protein 6.6 G/DL (6.4-8.2) Albumin 3.3 G/DL (3.4-5.0) L Globulin 3.3 g/dL Albumin/Globulin Ratio 1.0 (1.0-2.7) Plan Problems: (1) Partial small bowel obstruction Assessment & Plan: 43-year-old male with abdominal pain, nausea, emesis. History of GERD and chronic constipation. Pain ongoing for 2 days. Normal bowel movements and flatus. On examination right lower quadrant epigastric region actually fairly tender with voluntary guarding. CT noted and fairly concerning given significant bowel dilatation air-fluid levels distended stomach duodenum and area of thickening with decompression around the terminal ileum Recommend stat upper GI contrast study to evaluate transit as well as potential for complete obstruction given the findings noted on the CT. The area around the terminal ileum could be a stricture inflammatory infectious or even potential tumor. Need to identify if completely obstructed and if so will need surgical intervention. If not completely obstructed in that area just slow transit or partial obstruction then when stabilized will consider scope. Upper GI contrast identified with good passage of contrast without significant obstructive process or delay and contrast noted in the colon followed by bowel movements. KUB noted advance diet today IV fluids IV antibiotics in case potential infectious process Stool studies Trend labs Serial abdominal examinations d/c planning for possible tomorrow We will continue to monitor Thank you for allowing participate patient's care will will follow with recommendations Vinod Toledo Apr 13, 2019 10:55
[2019-04-13 11:50] VITALS: BP 112/66
[2019-04-13] MEDS: metroNIDAZOLE 500mg tab ORAL SCH ×2 (12:46→17:54)
[2019-04-13 16:00] VITALS: BP 117/74
--- NOTE | 2019-04-13 19:00 | NUR ---
HAND-OFF: Report given to GABRIELA Villasenor.
--- NOTE | 2019-04-13 19:41 | NUR ---
NURSE NOTES: Received patient in bed, VSS afebrile, no acute distress noted, IV site is clean dry and intact. Patient is able to make his needs known, speaks burundian, call light is within reach, bed in low position, locked, alarm is on, will continue to monitor for comfort and safety.
[2019-04-13 20:00] VITALS: BP 114/67
[2019-04-14] VITALS: BP 113/69
[2019-04-14] MEDS: metroNIDAZOLE 500mg tab ORAL SCH ×3 (00:13→11:42)
[2019-04-14 04:00] VITALS: BP 131/76
--- NOTE | 2019-04-14 07:14 | NUR ---
HAND-OFF: Report given to Aster OCHOA.
--- NOTE | 2019-04-14 07:36 | NUR ---
NURSE NOTES: received patient in bed, asleep, no sign of distress noted. Patient has RFA IV access, saline locked. Bed is locked at the lowest position possible, call light within easy reach, siderails up x3. Will continue to monitor patient and follow up with the plan of care.
[2019-04-14 08:00] VITALS: BP 117/69
[2019-04-14 08:33] LABS: BASOPHILS % (AUTO) 1.5 % (0.0-2.0); EOSINOPHILS % (AUTO) 3.1 % (0.0-3.0); HEMOGLOBIN 15.3 G/DL (14.2-18.0); LYMPHOCYTES % (AUTO) 38.8 % (20.0-45.0); MEAN CORPUSCULAR VOLUME 85 FL (80-99); MONOCYTES % (AUTO) 9.7 % (1.0-10.0); NEUTROPHILS % (AUTO) 46.9 % (45.0-75.0); PLATELET COUNT 201 K/UL (150-450); RED BLOOD COUNT 5.04 M/UL (4.70-6.10); RED CELL DISTRIBUTION WIDTH 9.8 % (11.6-14.8); WHITE BLOOD COUNT 4.3 K/UL (4.8-10.8)
[2019-04-14 08:57] LABS: ALANINE AMINOTRANSFERASE 42 U/L (12-78); ALBUMIN 3.6 G/DL (3.4-5.0); ALKALINE PHOSPHATASE 66 U/L (46-116); ANION GAP 6 mmol/L (5-15); ASPARTATE AMINO TRANSFERASE 22 U/L (15-37); BILIRUBIN,TOTAL 0.5 MG/DL (0.2-1.0); BLOOD UREA NITROGEN 10 mg/dL (7-18); CALCIUM 8.5 MG/DL (8.5-10.1); CARBON DIOXIDE 30 MMOL/L (21-32); CHLORIDE 104 MMOL/L (98-107); POTASSIUM 3.6 MMOL/L (3.5-5.1); SODIUM 140 MMOL/L (136-145)
--- NOTE | 2019-04-14 09:02 | General Progress Note ---
Assessment/Plan Problem List: (1) Constipation ICD Codes: K59.00 - Constipation, unspecified SNOMED: 76954992 (2) Gastritis ICD Codes: K29.70 - Gastritis, unspecified, without bleeding SNOMED: 0562565 (3) Partial small bowel obstruction ICD Codes: K56.600 - Partial intestinal obstruction, unspecified as to cause SNOMED: 307021765 Status: stable, progressing Assessment/Plan: stable no diarrhea or vomiting dc planning per surgery Subjective ROS Limited/Unobtainable: No Constitutional: Reports: no symptoms HEENT: Reports: no symptoms Cardiovascular: Reports: no symptoms Respiratory: Reports: no symptoms Gastrointestinal/Abdominal: Reports: no symptoms Genitourinary: Reports: no symptoms Neurologic/Psychiatric: Reports: no symptoms Endocrine: Reports: no symptoms Hematologic/Lymphatic: Reports: no symptoms Allergies: Coded Allergies: No Known Allergies (Unverified , 08/27/15) All Systems: reviewed and negative except above Subjective no events. no nausea or vomiting. no diarrhea. tolerating pos Objective Last 24 Hour Vital Signs Date Time Temp Pulse Resp B/P (MAP) Pulse Ox O2 Delivery O2 Flow Rate FiO2 04/14/19 08:00 97.7 59 18 117/69 (85) 97 04/14/19 04:00 98.1 74 18 131/76 (94) 97 04/14/19 00:00 98.7 65 18 113/69 (84) 98 04/13/19 21:06 Room Air 04/13/19 20:00 98.2 80 21 114/67 (83) 96 04/13/19 16:00 97.9 57 18 117/74 (88) 98 04/13/19 11:50 97.9 56 16 112/66 (81) 98 Intake and Output 04/13/19 04/14/19 19:00 07:00 Intake Total 1360 ml Balance 1360 ml Intake Oral 960 ml IV Total 400 ml # Voids 4 Laboratory Tests 04/14/19 05:50: White Blood Count 4.3L, Red Blood Count 5.04, Hemoglobin 15.3, Hematocrit 43.0, Mean Corpuscular Volume 85, Mean Corpuscular Hemoglobin 30.3, Mean Corpuscular Hemoglobin Concent 35.6, Red Cell Distribution Width 9.8L, Platelet Count 201, Mean Platelet Volume 6.5, Neutrophils (%) (Auto) 46.9, Lymphocytes (%) (Auto) 38.8, Monocytes (%) (Auto) 9.7, Eosinophils (%) (Auto) 3.1H, Basophils (%) (Auto ) 1.5, Erythrocyte Sedimentation Rate [Pending], Sodium Level [Pending], Potassium Level [Pending], Chloride Level [Pending], Carbon Dioxide Level [ Pending], Blood Urea Nitrogen [Pending], Creatinine [Pending], Estimat Glomerular Filtration Rate [Pending], Glucose Level [Pending], Calcium Level [ Pending], Total Bilirubin [Pending], Aspartate Amino Transf (AST/SGOT) [Pending] , Alanine Aminotransferase (ALT/SGPT) [Pending], Alkaline Phosphatase [Pending] , C-Reactive Protein, Quantitative [Pending], Total Protein [Pending], Albumin [ Pending], Globulin [Pending] Height (Feet): 5 Height (Inches): 5.00 Weight (Pounds): 172 General Appearance: WD/WN, alert Neck: supple Cardiovascular: normal peripheral pulses, normal rate, regularly irregular Respiratory/Chest: chest wall non-tender, lungs clear, normal breath sounds Abdomen: normal bowel sounds, non tender, soft, no organomegaly Edema: no edema noted Arm (L), no edema noted Arm (R), no edema noted Leg (L), no edema noted Leg (R), no edema noted Pedal (L), no edema noted Pedal (R), no edema noted Generalized Fernando Brush MD Apr 14, 2019 09:02
--- NOTE | 2019-04-14 10:15 | Surgery Progress Note ---
Surgery Progress Note Subjective Symptoms: improved, pain absent, tolerating diet, voiding well, passing flatus , BM Objective Last 24 Hour Vital Signs Date Time Temp Pulse Resp B/P (MAP) Pulse Ox O2 Delivery O2 Flow Rate FiO2 04/14/19 09:00 Room Air 04/14/19 08:00 97.7 59 18 117/69 (85) 97 04/14/19 04:00 98.1 74 18 131/76 (94) 97 04/14/19 00:00 98.7 65 18 113/69 (84) 98 04/13/19 21:06 Room Air 04/13/19 20:00 98.2 80 21 114/67 (83) 96 04/13/19 16:00 97.9 57 18 117/74 (88) 98 04/13/19 11:50 97.9 56 16 112/66 (81) 98 I&O Intake and Output 04/13/19 04/14/19 19:00 07:00 Intake Total 1360 ml Balance 1360 ml Intake Oral 960 ml IV Total 400 ml # Voids 4 Cardiovascular: RSR Respiratory: clear Abdomen: soft, flat, non-tender, present bowel sounds, non-distended Extremities: no edema, no tenderness, no cyanosis Laboratory Tests Test 04/14/19 05:50 White Blood Count 4.3 K/UL (4.8-10.8) L Red Blood Count 5.04 M/UL (4.70-6.10) Hemoglobin 15.3 G/DL (14.2-18.0) Hematocrit 43.0 % (42.0-52.0) Mean Corpuscular Volume 85 FL (80-99) Mean Corpuscular Hemoglobin 30.3 PG (27.0-31.0) Mean Corpuscular Hemoglobin Concent 35.6 G/DL (32.0-36.0) Red Cell Distribution Width 9.8 % (11.6-14.8) L Platelet Count 201 K/UL (150-450) Mean Platelet Volume 6.5 FL (6.5-10.1) Neutrophils (%) (Auto) 46.9 % (45.0-75.0) Lymphocytes (%) (Auto) 38.8 % (20.0-45.0) Monocytes (%) (Auto) 9.7 % (1.0-10.0) Eosinophils (%) (Auto) 3.1 % (0.0-3.0) H Basophils (%) (Auto) 1.5 % (0.0-2.0) Erythrocyte Sedimentation Rate 16 MM/HR (0-15) H Sodium Level 140 MMOL/L (136-145) Potassium Level 3.6 MMOL/L (3.5-5.1) Chloride Level 104 MMOL/L (98-107) Carbon Dioxide Level 30 MMOL/L (21-32) Anion Gap 6 mmol/L (5-15) Blood Urea Nitrogen 10 mg/dL (7-18) Creatinine 1.0 MG/DL (0.55-1.30) Estimat Glomerular Filtration Rate > 60 mL/min (>60) Glucose Level 88 MG/DL (74-106) Calcium Level 8.5 MG/DL (8.5-10.1) Total Bilirubin 0.5 MG/DL (0.2-1.0) Aspartate Amino Transf (AST/SGOT) 22 U/L (15-37) Alanine Aminotransferase (ALT/SGPT) 42 U/L (12-78) Alkaline Phosphatase 66 U/L (46-116) C-Reactive Protein, Quantitative 0.6 mg/dL (0.00-0.90) Total Protein 7.3 G/DL (6.4-8.2) Albumin 3.6 G/DL (3.4-5.0) Globulin 3.7 g/dL Albumin/Globulin Ratio 1.0 (1.0-2.7) Plan Problems: (1) Partial small bowel obstruction Assessment & Plan: 43-year-old male with abdominal pain, nausea, emesis. History of GERD and chronic constipation. Pain ongoing for 2 days. Normal bowel movements and flatus. On examination right lower quadrant epigastric region actually fairly tender with voluntary guarding. CT noted and fairly concerning given significant bowel dilatation air-fluid levels distended stomach duodenum and area of thickening with decompression around the terminal ileum Recommend stat upper GI contrast study to evaluate transit as well as potential for complete obstruction given the findings noted on the CT. The area around the terminal ileum could be a stricture inflammatory infectious or even potential tumor. Need to identify if completely obstructed and if so will need surgical intervention. If not completely obstructed in that area just slow transit or partial obstruction then when stabilized will consider scope. Upper GI contrast identified with good passage of contrast without significant obstructive process or delay and contrast noted in the colon followed by bowel movements. KUB noted advance diet today IV fluids IV antibiotics in case potential infectious process Stool studies Trend labs Serial abdominal examinations d/c home rx flagyl f/u 1 wek We will continue to monitor Thank you for allowing participate patient's care will will follow with recommendations Vinod Toledo Apr 14, 2019 10:15
[2019-04-14] MEDS ORDERED: FLAGYL500 MG ORAL (10:24)
--- NOTE | 2019-04-14 10:54 | NUR ---
CASE MANAGEMENT:REVIEW 04/14/19 SI: PARTIAL SMALL BOWEL OBSTRUCTION 97.7 59 18 117/69 97% ON RA ESR+16 IS: FLAGYL PO Q6HRS IV PEPCID Q12 : MED/SURG 4 [facility] DCP: FROM HOME PLAN: CLEAR DIET STARTED 04/13/11 START SOFT DIET TODAY
--- NOTE | 2019-04-14 11:14 | NUR ---
*-* NO INSURANCE INFORMATION IN THE BAR UNABLE TO SEND CLINICALS OR REVIEWS *-*
--- NOTE | 2019-04-14 11:17 | Diagnostic Imaging Report ---
Indication: Reason For Exam: ABD PAIN Technique: Patient ingested water-soluble contrast. Serial overhead films obtained over the abdomen. Total 9 images obtained. No fluoroscopy utilized. Comparison: Reference made to CT scan earlier the same day Findings: Wet Machine Operator image demonstrates mildly dilated small bowel loops. Contrast from prior CT scan is seen within the bladder After contrast administration, contrast opacifies dilated proximal jejunum. This study for transit of contrast, with contrast seen within the ascending colon at 2 hours. Impression: Contrast reaches the colon in 2 hours, suggesting absence of significant obstructive process. Proximal small bowel distention is likely functional in nature or related to enteritis changes. This agrees with the preliminary interpretation provided overnight by Dr. Beckett
[2019-04-14 12:00] VITALS: BP 115/71
--- NOTE | 2019-04-14 14:10 | NUR ---
NURSE NOTES: patient has been discharged to home, leaves by private vehicle. Patient in stable condition and VS, no complaint of pain or discomfort. Patient signed off belongings list and left with all his belongings. Given discharge packet with medication reconciliation, new medication brought by [facility] pharmacy. Taken IV access off, no bleeding after site compression. Patient signed Release of Medical information form, attached to patient's physical chart.
--- NOTE | 2019-04-14 14:30 | NUR ---
*-* INSURANCE *-* ALL CLINICALS AND REVIEWS HAVE BEEN FAXED TO: [facility]:[place] [phone] FAX [phone] Work Work Addendum: 04/14/19 at 1432 by BOB CHASE CM REF# [id number] Addendum: 04/15/19 at 1017 by BOB CHASE CM [facility] Ref# [id number] Reena RUIZ ph#[phone] fax#[phone]
--- NOTE | 2019-04-15 11:11 | Discharge Summary ---
Discharge Summary Discharge Summary _ DATE OF ADMISSION: 04/11/2019 DATE OF DISCHARGE: 04/14/2019 DISCHARGED BY: Dr. Brush REASON FOR ADMISSION: 43 years old male with past medical history of acid reflux and constipation, presented to emergency department with abdominal pain. Patient apparently was under treatment for constipation with his primary care provider . He was on fiber supplement and stool softener. Over the night abdominal pain began to worsen, and patient reported diffuse abdominal pain over his whole abdomen. He also noted multiple episodes of nausea and vomiting. Patient had sensation of acid reflux. He denied dysuria or hematuria . He denied fever and chills. No chest pain or shortness of breath. Upon evaluation vital signs were stable. Laboratory work-up revealed mild leukocytosis WBC 12.8 , stable hemoglobin and hematocrit. Sodium 133 , potassium 3.3. BUN 20, creatinine 1.1. Glucose 138. Stable LFT, urinalysis revealed +2 protein, +1 ketones , no evidence of urinary tract infection. CT scan of the abdomen and pelvis demonstrated suspected gastroenteritis with diffuse fluid-filled distention of small bowel. There was a questionable transition a few centimeters from the ileocecal valve. There could be a small stricture or could be on the basis of the contraction. Small bowel x-ray revealed proximal small bowel distention, likely functional in nature or related to enteritis changes. Upper GI contrast was identified with good passage of contrast without significant obstructive process or delay. Contrast was noted in the colon, followed by bowel movements. Patient subsequently admitted to medical surgical floor for further management t CONSULTANTS: surgery Dr. Toledo [facility] COURSE: Patient admitted to medical surgical floor . Patient was kept n.p.o. Pain management was addressed. Antiemetic provided as needed. Surgeon closely followed. Patient had serial abdominal exams . Patient was slowly started on diet . GI prophylaxis provided. Symptomatic care provided. Serial abdominal examination were done. Patient was able to tolerate diet. Initial mild leukocytosis resolved. Electrolytes remained stable after correction . Urine toxicology screen was negative. Patient clinically stabilized and was ready for discharge home. FINAL DIAGNOSES: Partial mall bowel obstruction Constipation Gastritis DISCHARGE MEDICATIONS: See Medication Reconciliation list. DISCHARGE INSTRUCTIONS: Patient was discharged home with home health services. Follow up with primary care provider in one week. I have been assigned to dictate discharge summary for this account. I was not involved in the patient's management. Yumiko Stroud NP Apr 15, 2019 11:11
--- NOTE | 2019-04-15 14:39 | NUR ---
*-* INSURANCE *-* ALL CLINICALS AND REVIEWS HAVE BEEN FAXED TO: [facility] NCM:[place] [phone] FAX [phone] Work Work Ref# [id number] Addendum: 04/16/19 at 0852 by BOB CHASE CM tried katelin buckleyk no answer and no vociemail
== END 2019-04-14 14:06 | disposition home or self-care (01) | DRG 390 ==
LOC: EMR 09:55 → 4E 14:45 → EDBEDREQ 16:38
DX: K56.600 Partial intestinal obstruction, unspecified as to cause (principal); K29.70 Gastritis, unspecified, without bleeding; K21.9 Gastro-esophageal reflux disease without esophagitis; K59.00 Constipation, unspecified
CPT/HCPCS: 36415; 74018; 74177; 74250; 80053; 80061; 80307; 81003; 82150; 83036; 83690; 83880; 85025; 85610; 85651; 85730; 86140; 96361; 96374; 99285; G0480; J7030